=== PATIENT | male | born 1970 | race Caucasian/White ===

== ENCOUNTER 2019-04-03 23:11 | Inpatient (IN) | payer BC ==
--- NOTE | 2019-04-03 23:46 | CT ---
CT brain. HISTORY: Syncope. Noncontrast enhanced images of the brain obtained. The brain is unremarkable. No evidence of intracranial masses, hemorrhages or strokes seen. Multiple bilateral opacified ethmoid air cells seen. IMPRESSION: Unremarkable CT brain.
--- NOTE | 2019-04-03 23:52 | RAD ---
AP view chest. HISTORY: Syncope. Gabby AP view chest demonstrates the lungs to be well aerated. No evidence of active intrathoracic disease seen. No evidence of effusions, pneumonia or pneumothorax seen. IMPRESSION: unremarkable AP view chest.
[2019-04-04 00:23] LABS: Hemoglobin 13.2 g/dL (14.0-18.0); Mean Corpuscular HGB CONC 33.8 g/dL (32.0-36.0); Mean Corpuscular Hemoglobin 30.3 pg (27.0-31.0); Mean Corpuscular Volume 89.8 fL (78.0-98.0); Mean Platelet Volume 7.8 fL (7.4-10.4); Platelet Count 317 thou/uL (130-400); RBC Distribution Width 11.4 % (11.5-14.5); Red Blood Cell (RBC) Count 4.36 mill/uL (4.70-6.10); White Blood Cell (WBC) Count 29.3 thou/uL (4.8-10.8)
[2019-04-04 00:40] LABS: Hypochromia SLIGHT = 6-15 cells (100X) (0-5/hpf); Lymphocytes 7 % (21-51); MDiff Complete? YES; Monocytes 3 % (0-10); Neutrophil 90 % (42-75); Platelet Morphology Comment Appears Adequate
[2019-04-04 00:41] LABS: ALT (SGPT) 25 U/L (8-55); AST (SGOT) 16 U/L (5-34); Albumin 3.7 g/dL (3.5-5.0); Alkaline Phosphatase 69 U/L (40-150); Anion Gap 14 mmol/L (10-20); BUN (Urea Nitrogen) 52 mg/dL (8.9-20.6); Bilirubin, Total 0.5 mg/dL (0.2-1.2); Calc. Creatinine Clearance 0 mL/min (70-130); Carbon Dioxide 21 mmol/L (22-29); Chloride 110 mmol/L (98-107); Estimated GFR-MDRD 57; Globulin 2.3 g/dL (2.4-3.5); Glucose 92 mg/dL (70-105); Lipase 20 U/L (8-78); Potassium 4.4 mmol/L (3.5-5.1); Sodium 141 mmol/L (136-145)
[2019-04-04] MEDS ORDERED: Pantoprazole 40 MG VIAL ONE (00:45)
[2019-04-04 01:04] LABS: CKMB 1.6 ng/mL (0-6.6)
[2019-04-04 03:08] LABS: Clarity Clear (Clear)
[2019-04-04 03:09] LABS: Bilirubin Negative (Negative); Blood, Urine Negative (Negative); Glucose, Urine (Dipstick) Negative (Negative); Leukocyte Negative (Negative); Nitrite Negative (Negative); Protein, Urine (Dipstick) Negative (Neg-Trace); Urobilinogen 0.2 mg/dL (0.2-1.0)
[2019-04-04 04:08] LABS: Troponin I 0.115 ng/mL (< 0.028)
[2019-04-04] MEDS ORDERED: Ondansetron PF 4 MG/2 ML Vial IVP PRN (07:49)
[2019-04-04] MEDS: Sodium Chloride 0.9% 1,000 ML IV SCH ×2 (08:45→21:28)
[2019-04-04 10:39] LABS: #Basophils 0.1 thou/uL (0.0-0.2); #Eosinphils 0.4 thou/uL (0.0-0.7); #Neutrophils 8.3 thou/uL (1.40-6.50); %Basophils 0.6 % (0.0-1.0); %Eosinophils 2.7 % (0.0-10.0); %Lymphocytes 29.1 % (21.0-51.0); %Neutrophils 60.5 % (42.0-75.0); Hemoglobin 12.3 g/dL (14.0-18.0); Mean Corpuscular HGB CONC 34.6 g/dL (32.0-36.0); Mean Corpuscular Hemoglobin 30.7 pg (27.0-31.0); Mean Corpuscular Volume 88.8 fL (78.0-98.0); Mean Platelet Volume 8.1 fL (7.4-10.4); Platelet Count 275 thou/uL (130-400); RBC Distribution Width 11.3 % (11.5-14.5); Red Blood Cell (RBC) Count 3.99 mill/uL (4.70-6.10); White Blood Cell (WBC) Count 13.7 thou/uL (4.8-10.8)
--- NOTE | 2019-04-04 13:05 | HP ---
CHIEF COMPLAINT: Syncopal episode. HISTORY OF PRESENT ILLNESS: The patient is a 49-year-old male, who presented to the emergency room with syncopal episode. Apparently, he was at his work, and he went to the bathroom and vomited, and he passed out. He was able to contact his coworkers, and EMS was called, and he was transported to the emergency room. Apparently, for the last couple of days, he had some nausea, vomiting, and some diarrhea with black coffee-ground stools. The pain of the abdomen was mostly on the right side. He denied any fever or chills. He denied any blood in his vomits. Apparently, he takes 200 mg tablets of Motrin every day for chronic musculoskeletal aches for long time. While in the emergency room, he was found to have some positive stool for fecal occult blood and got admitted to the hospital. PAST MEDICAL HISTORY: None. PAST SURGICAL HISTORY: Left foot surgery. MEDICATIONS: None. ALLERGIES: NONE. PRIMARY CARE PHYSICIAN: None. SURROGATE DECISION MAKER: The patient's mother, Oralia Garcia. SOCIAL HISTORY: He chews tobacco. He does not drink. He does not use any illicit drugs. FAMILY HISTORY: Father passed at the age of 72 of multiple myeloma, and mother has diabetes and hypertension and she is still alive. REVIEW OF SYSTEMS: All 14 systems were reviewed and the only findings which were noticed in HPI are positive. The rest are negative. PHYSICAL EXAMINATION: VITAL SIGNS: Blood pressure is 125/59, pulse is 91, temperature is 98, respirations are 16, O2 saturation is 98% on room air. HEENT: His head is atraumatic and normocephalic. Eyes are PERRLA. Sclerae are nonicteric. Conjunctivae pinkish. Oral mucosa is slightly dry. NECK: Supple. LUNGS: Clear. HEART: S1 and S2 normal. No S3. No S4. ABDOMEN: Soft. Mildly tender in the right side of the abdomen. No guarding. No masses. EXTREMITIES: No clubbing, cyanosis, or edema. NEUROLOGICAL: He is alert and oriented x4. There are no any motor or sensory deficits present. Cranial nerves are intact. LABORATORY DATA: White count of 29.3, hemoglobin of 13.2, hematocrit 39.1, platelet count 317,000, and neutrophils 90%. Sodium 141, potassium 4.4, chloride 110, CO2 of 21, BUN 52, creatinine 1.33. Troponin 0.115. Globulin 2.3. Urinalysis within normal limits. DIAGNOSTIC DATA: EKG showed normal sinus tachycardia, ventricular rate is 102 beats per minute, no other abnormalities. Chest x-ray personally reviewed by me did not show any acute abnormalities. CT of the head, no acute abnormalities. IMPRESSION: 1. Syncopal episode, most likely related to his gastrointestinal bleed. 2. Gastrointestinal bleeding, most likely related to chronic NSAID use for his body aches. 3. Renal insufficiency. This could be related to NSAIDs again from chronic use. We will try to use some IV fluids to see whether his creatinine can improve. 4. Elevated troponin at 0.115, which could be related to his renal insufficiency, but we are going to follow up with 2 other sets of troponin. PLAN: Plan is full admission. Condition is fair. Activity is bedrest. Diet n.p.o. GI consult. Protonix drip and Zofran p.r.n. for nausea. CBC now, then every morning and BMP every morning. IV fluids, normal saline 100 mL per hour and prophylaxis with SCDs, no Lovenox since he is bleeding. Job ID: [id number]
[2019-04-04] MEDS ORDERED: Promethazine HCl 25 MG/ML VIAL IM PRN (18:46)
[2019-04-04] MEDS ORDERED: Ondansetron HCl/PF 4 MG/2 ML Vial IVP PRN (18:46)
[2019-04-04] MEDS ORDERED: Promethazine HCl 25 MG/ML VIAL SLOW IVP PRN (18:46)
[2019-04-04] MEDS: Pantoprazole 80 MG, Admixture Fee 1 EACH in Sodium Chloride 0.9% 100 ML IVP SCH (21:28)
--- NOTE | 2019-04-04 21:48 | OP ---
DATE OF PROCEDURE: 04/04/2019 PROCEDURES PERFORMED: Esophagogastroduodenoscopy with biopsy. Esophagogastroduodenoscopy with 7-[place]ots[place] BICAP therapy of ulcer in the duodenum. PREOPERATIVE DIAGNOSIS: GI bleeding. POSTOPERATIVE DIAGNOSES: 1. Normal esophagus. 2. Mild antral gastritis with erosion. 3. Two ulcers in the duodenal bulb, 1 ulcer showing erythematous spot . DESCRIPTION OF PROCEDURE: The patient was placed on his left lateral position and was given sedation by Anesthesia Department. A Pentax video gastroscope under direct vision passed down the oropharynx, past the GE junction into the stomach and subsequently into the descending duodenum. At the time of endoscopy, the stomach is free of any blood. The esophagus appeared normal. The GE junction had no pathology. The fundus and cardia, gastric body had no pathology. The gastric antrum shows gastric erosions, no bleeding seen. The scope was advanced into the duodenal bulb. The patient found he had 2 ulcerations in the bulb. Both ulcers appeared chronic. 1 of the ulceration appears to have a black spot in the middle. I am not sure this is a visible vessel. It was initially cauterized to the area with a BICAP probe. The descending duodenum had no pathology. The scope withdrawn back into the stomach and biopsies obtained from the gastric antrum and gastric body. The stomach decompressed and the scope removed. RECOMMENDATION: 1. Clear liquid diet. 2. PPI. 3. No aspirin or any NSAIDs medication. 4. Advance diet to regular tomorrow. If he does well with no recurrence of bleeding, consider discharge home in the next 24 hours. Job ID: [id number]
[2019-04-05 04:39] LABS: #Basophils 0.1 thou/uL (0.0-0.2); #Eosinphils 0.5 thou/uL (0.0-0.7); #Lymphocytes 3.9 thou/uL (1.20-3.40); #Monocytes 0.5 thou/uL (0.11-0.59); #Neutrophils 4.7 thou/uL (1.40-6.50); %Eosinophils 5.3 % (0.0-10.0); %Lymphocytes 40.3 % (21.0-51.0); %Monocytes 4.7 % (0.0-10.0); %Neutrophils 48.7 % (42.0-75.0); Hemoglobin 9.9 g/dL (14.0-18.0); Mean Corpuscular HGB CONC 34.4 g/dL (32.0-36.0); Mean Corpuscular Hemoglobin 30.8 pg (27.0-31.0); Mean Corpuscular Volume 89.5 fL (78.0-98.0); Mean Platelet Volume 7.1 fL (7.4-10.4); Platelet Count 229 thou/uL (130-400); RBC Distribution Width 11.4 % (11.5-14.5); Red Blood Cell (RBC) Count 3.22 mill/uL (4.70-6.10); White Blood Cell (WBC) Count 9.6 thou/uL (4.8-10.8)
[2019-04-05 05:00] LABS: Anion Gap 10 mmol/L (10-20); BUN (Urea Nitrogen) 33 mg/dL (8.9-20.6); Calc. Creatinine Clearance 100 mL/min (70-130); Calcium 8.1 mg/dL (7.8-10.44); Carbon Dioxide 22 mmol/L (22-29); Chloride 110 mmol/L (98-107); Estimated GFR-MDRD 67; Glucose 93 mg/dL (70-105); Potassium 4.1 mmol/L (3.5-5.1); Sodium 138 mmol/L (136-145)
[2019-04-05] MEDS: Sodium Chloride 0.9% 1,000 ML IV SCH ×2 (05:13→13:35)
--- NOTE | 2019-04-05 07:00 | CON ---
DATE OF CONSULTATION: 04/04/2019 REASON FOR CONSULTATION: GI bleeding. HISTORY OF PRESENT ILLNESS: Mr. Mart Garcia is a very pleasant 49-year-old male, who is very healthy. He has no major medical problems except for some hyperlipidemia. The patient has been having abdominal pains and malaise over a couple of days. He says that he was not feeling well. 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 everyday. At work last night, he felt sick to his stomach and he had an episode of melena stool and passed out. Subsequently, he was brought to the ER from the workplace. The patient had been having black tarry stools for . He had no similar episodes in the past. He has no past history of ulcer disease. The patient does take ibuprofen up to three times a day for some muscle pain. He has been doing it for a long time. He does not take any aspirin or any other NSAID medication. The patient denies abdominal pain. No history of any dyspepsia. No heartburn. No indigestion. He was brought to the hospital because of bleeding. He has had no stool since admission to the hospital. He denies abdominal pain. No nausea. ALLERGIES: NONE. PAST MEDICAL HISTORY: Very healthy male. No apparent problems. PAST SURGICAL HISTORY: The only surgery he had is left foot surgery many years ago. MEDICATIONS: Ibuprofen 200 mg three times a day every day. SOCIAL HISTORY: The patient chews tobacco. He does not drink alcohol. He does not smoke. REVIEW OF SYSTEMS: A 10-point system review; CONSTITUTIONAL: No fever. No weight loss. He has good exercise tolerance. HEENT: No double vision. No diplopia. ENT, unremarkable. Throat, no sore throat. No dysphagia. NECK: No stiffness or pain. MUSCULOSKELETAL: He does have some muscle pain off and on. RESPIRATORY: No history of chronic cough, hemoptysis or dyspnea. CARDIOVASCULAR: No chest pain. No palpitation. No dyspnea, orthopnea, or PND. GASTROINTESTINAL: History of black tarry stool. GENITOURINARY: Not known. NEUROLOGIC: Not known. ENDOCRINE: Not known. PHYSICAL EXAMINATION: GENERAL: He is awake, alert, and communicative. He is in no distress. VITAL SIGNS: Stable. Temperature 98 degrees Fahrenheit, pulse 91, blood pressure 129/59. HEENT: Conjunctivae clear. NECK: Supple. No adenitis or thyromegaly noted. CARDIOVASCULAR: First and second heart sounds. LUNGS: Clear to auscultation. ABDOMEN: Soft. No organomegaly. No tenderness. No masses. EXTREMITIES: Reveal no edema. LABORATORY DATA: CBC; WBC 29,300, dropping down to 13,700; hemoglobin 13.2, dropping down to 12.3; hematocrit 35.4; MCV 88.8; platelet count 275,000; polymorphs 60; lymphocytes 29. Serum chemistry; BUN is elevated at 52, mostly from GI bleeding. The lytes are normal. Liver function tests; AST 16, ALT 25, alkaline phosphatase 69. CPK-MB 1.6. Troponin is 0.90. Albumin 3.7. CLINICAL IMPRESSION: A 49-year-old male with history of black tarry stool and had an episode of syncope at work. The patient takes ibuprofen on a regular basis. The patient most likely has bleeding from ulcer disease. RECOMMENDATIONS: 1. Serial H&H. 2. IV PPI. 3. EGD later on today. I will make further recommendations. Job ID: [id number]
[2019-04-05] MEDS: Pantoprazole 80 MG, Admixture Fee 1 EACH in Sodium Chloride 0.9% 100 ML IVP SCH (07:15)
[2019-04-05 11:08] VITALS: BMI 26.4
[2019-04-05 11:09] VITALS: BP 104/57; TEMP 98.5
--- NOTE | 2019-04-06 06:25 | DIS ---
DATE OF ADMISSION: 04/04/2019 DATE OF DISCHARGE: 04/05/2019 DISCHARGE DIAGNOSES: 1. Acute gastrointestinal bleed secondary to duodenal ulceration. 2. Syncopal episode secondary to #1. 3. Acute kidney injury secondary to volume depletion. 4. Acute blood loss anemia secondary to gastrointestinal bleed. 5. Smokeless tobacco use. CONSULTATION: Dr. Saavedra with GI Service. PERTINENT LAB AND X-RAY FINDINGS: Creatinine ranged between 1.15 to 1.33. Estimated GFR ranged between 57 to 67. Troponin I ranged between 0.054 to 0.115. CBC showed a hemoglobin ranging between 9.9 to 13.2. White blood cell count ranged between 9.6 to 29.3. Stool Hemoccult dated 04/04/2019, positive x1. CT of the brain without contrast dated 04/03/2019 showed no acute intracranial process. Portable chest x-ray dated 04/03/2019 showed no acute cardiopulmonary process. EGD dated 04/04/2019 showed mild antral gastritis with erosion in addition to two ulcers in the duodenal bulb. HOSPITAL COURSE: The patient was admitted to the telemetry unit after initially presenting status post syncopal episode. The patient was also noted with melena consistent with suspected upper GI bleed. The patient underwent evaluation by the GI Service with serial hemoglobin showing overall decreasing values from initial 13.2 to 9.9 by the time of discharge. The patient underwent EGD evaluation showing mild antral gastritis with erosion as well as two erosions in the duodenal bulb. The patient was placed on IV Protonix throughout the hospital course in addition to IV fluids. The patient was counseled regarding the need to discontinue all NSAIDs as well as smokeless tobacco products. The patient tolerated clear liquids advancing to mechanical soft without difficulty. I have examined the patient at the time of discharge and discussed followup instructions. The patient verbalized understanding and in agreement, ready for discharge on 04/05/2019. DISCHARGE MEDICATIONS: Protonix 40 mg p.o. b.i.d. x4 weeks followed by 40 mg p.o. daily. FOLLOWUP VISITS: The patient may follow up with Dr. Saavedra with GI Service. CONDITION ON DISCHARGE: Stable. ACTIVITY: Ad-master. DIET: Regular. CODE STATUS: Full. DISPOSITION: To home, 04/05/2019. Job ID: [id number]
== END 2019-04-05 18:56 | disposition home or self-care (01) | DRG 379 ==
LOC: ERS 23:11 → 2NO 04-04 03:26
PROVIDERS: ADMIT Hospitalist; ATTEND Hospitalist
PROC: 0DB68ZX Excision of Stomach, Via Natural or Artificial Opening Endoscopic, Diagnostic (ICD-10-PCS; principal; 2019-04-04)
PROC: 0W3P8ZZ Control Bleeding in Gastrointestinal Tract, Via Natural or Artificial Opening Endoscopic (ICD-10-PCS; 2019-04-04)
DX: K26.4 Chronic or unspecified duodenal ulcer with hemorrhage (principal); N28.9 Disorder of kidney and ureter, unspecified; K25.9 Gastric ulcer, unspecified as acute or chronic, without hemorrhage or perforation; K29.70 Gastritis, unspecified, without bleeding; T39.395A Adverse effect of other nonsteroidal anti-inflammatory drugs [NSAID], initial encounter; F17.220 Nicotine dependence, chewing tobacco, uncomplicated
CPT/HCPCS: 36415; 36416; 70450; 71045; 80048; 80053; 81003; 82274; 82553; 83690; 84484; 85025; 93005; C9113; J3490

== ENCOUNTER 2019-06-14 06:49 | Day surgery (SDC) | payer BC ==
[2019-06-13 09:35] VITALS: BMI 27.0
--- NOTE | 2019-06-13 18:57 | HP ---
HISTORY OF PRESENT ILLNESS: This is a 49-year-old male, hospitalized with 3 months of anemia and melena and was found to have a large ulceration at duodenal bulb. He underwent therapeutic intervention and had done well. The patient was taking pantoprazole twice a day over the last couple of months. The patient has done very well without any abdominal pain, nausea, or vomiting. The patient comes for a colonoscopy for colon cancer screening. ALLERGIES: NONE. SOCIAL HISTORY: The patient does not smoke or drink alcohol. MEDICAL ILLNESSES: GI bleeding with evidence of bleeding ulcer from the duodenum. PHYSICAL EXAMINATION: VITAL SIGNS: Pulse is 70 and blood pressure 130/70. HEENT: Conjunctivae clear. CARDIOVASCULAR SYSTEM: First and second heart sounds are normal. LUNGS: Clear to auscultation. ABDOMEN: Soft. No organomegaly. No tenderness. No masses. EXTREMITIES: Reveal no edema. ADMITTING DIAGNOSIS: A 49-year-old male comes for a colonoscopy for colon cancer screening. Job ID: [id number]
--- NOTE | 2019-06-14 13:44 | OP ---
DATE OF PROCEDURE: 06/14/2019 PROCEDURES PERFORMED: 1. Colonoscopy with polypectomy. 2. Colonoscopy with 10-[place] BICAP therapy at polypectomy site. 3. Injection of 1:10,000 epinephrine to polypectomy site to control bleeding and it was also done before the polypectomy. PREOPERATIVE DIAGNOSIS: Colon cancer screening. POSTOPERATIVE DIAGNOSES: 1. A very large pedunculated polyp on a thick broad stalk, sigmoid colon. 2. Another pedunculated polyp at 40 cm from the anal margin, spotted in high sigmoid colon area. The polyp was very large and with a thick broad-based stalk. 3. Hemorrhoids. DESCRIPTION OF PROCEDURE: The patient was placed on left lateral position and was given sedation by Anesthesia department. A rectal exam was done before the scope was advanced into the rectum. No lesions felt on rectal exam. A [email or web address] video colonoscope was introduced into the rectum and advanced all the way into the cecum. In the appendicular opening, ileocecal valve, and cecum, no pathology seen. On withdrawal of scope from cecum to ascending colon, hepatic flexure, no pathology seen. In the transverse colon, splenic flexure, descending colon, high sigmoid colon, no pathology seen. There were two large polyps seen over the sigmoid colon area. Both polyps were pedunculated and had a thick broad stalk. One polyp appeared very vascular. Because of the above reason, I decided to do injection of epinephrine at the stalk. A 1:10,000 epinephrine injected at the base of the stalk. A total of 3 mL injected. Subsequently, a snare was used to remove the polyp. In spite of injecting epinephrine, the patient was found to have bleeding from the polypectomy site. There was another 4 more mL injected at the polypectomy site which was showing a lot of bleeding. A 10-[place] BICAP probe passed through the biopsy channel and the area cauterized with good hemostasis. Another polyp was situated at about 15 cm from the area of this polyp. The polyp was again removed from the polypectomy site. Again, the patient had some mild bleeding from the polypectomy site. The polypectomy site has been cauterized with a 10-[place] BICAP probe with good hemostasis. Retroflexion of scope in the rectum revealed hemorrhoids. DISCHARGE PLAN: This is a 49-year-old male, came for a colonoscopy for colon cancer screening. He was found to have 2 big polyps on a thick dark stalk over the sigmoid colon area. Both were removed. Postprocedure, the patient had some bleeding from both polypectomy sites. Both had to be cauterized with a 10-[place] BICAP probe. At the end of the procedure, the polypectomy site appears to be well cauterized and no bleeding seen. The colon was decompressed and the scope was removed. This is a 49-year-old male, came for colonoscopy for colon cancer screening. The patient had two large polyps in the sigmoid colon area. Although, epinephrine was injected prophylactic to prevent bleeding, he still had some bleeding from the polypectomy site. Both polypectomy sites have been cauterized with a 10-[place]une[place] probe. DISCHARGE RECOMMENDATION: 1. The patient advised to call me if he develops abdominal pain, hematochezia. 2. In the absence of any other above symptoms, he will come back to me in 2 weeks. Job ID: [id number]
== END 2019-06-14 11:10 | disposition home or self-care (01) ==
LOC: SDC 06:49
PROVIDERS: ATTEND Internal Medicine Gastroenterology
PROC: 0DBN8ZX Excision of Sigmoid Colon, Via Natural or Artificial Opening Endoscopic, Diagnostic (ICD-10-PCS; principal; 2019-06-14)
PROC: 3E0H8GC Introduction of Other Therapeutic Substance into Lower GI, Via Natural or Artificial Opening Endoscopic (ICD-10-PCS; principal; 2019-06-14)
DX: Z12.11 Encounter for screening for malignant neoplasm of colon (principal); D12.5 Benign neoplasm of sigmoid colon; K64.9 Unspecified hemorrhoids; Z79.899 Other long term (current) drug therapy
CPT/HCPCS: 88305